=== PATIENT | female | born 1995 | race Caucasian/White ===

== ENCOUNTER 2022-11-14 22:41 | Emergency (ER) | payer OTHER ==
[~2022-11-14] VITALS: Ht 162.6 cm; Wt 68.0 kg
--- NOTE | 2022-11-14 22:44 | NUR ---
TORREY ALS TO BED #5
[2022-11-14 22:45] VITALS: BP 130/80
--- NOTE | 2022-11-14 22:54 | NUR ---
TORREY FROM HOME AFTER PTS MOTHER CALLED 911 STATING THAT HER DAUGHTER HAD OVERDOSED ON SEROQUEL. MOM REPORTED A POSSIBLE 15, 25 MG WERE INGESTED. PT IS NON VERBAL UPON ARRIVAL, RESPONDS TO TACTILE STIMULI. 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
[2022-11-14] MEDS ORDERED: NACL 0.9% 1,000 ML IV ONE (22:55)
--- NOTE | 2022-11-14 23:00 | NUR ---
27 Y/O F presents with an overdose of seroquel. Mom called ER asking about status of daughter and stated daughter took the pills, because he boyfriend called her ugly and broke up with her. The mother also stated her dad 2 years ago and the pt has been taking it rough along with history of attempts of self harm. Mom did state pt has a therapist through [facility] and sees Dr. Fenton. Pt presents sluggish and sleeping with minimal responses. PMH: depression, anxiety, bipolar
[2022-11-14 23:15] LABS: BASOPHILS % (AUTO) 0.7 % (0.0-2.0); EOSINOPHILS % (AUTO) 0.1 % (0.0-4.0); HEMATOCRIT 35.6 % (36-48); LYMPHOCYTES # (AUTO) 1.7 K/uL (2.5-16.5); LYMPHOCYTES % (AUTO) 34.8 % (20.5-51.1); MEAN CORPUSCULAR HEMOGLOBIN 33 pg (27-31); MEAN CORPUSCULAR HGB CONC 34 g/dL (33-37); MEAN CORPUSCULAR VOLUME 96.9 fL (80-94); MONOCYTES # (AUTO) 0.3 K/uL (0.8-1.0); NEUTROPHILS # (AUTO) 2.8 K/uL (1.8-7.7); NEUTROPHILS % (AUTO) 57.4 % (42.2-75.2); PLATELET COUNT (AUTO) 326 K/uL (140-450); RED BLOOD CELL COUNT(AUTO) 3.67 MIL/uL (4.20-5.40); RED CELL DISTRIBUTION WIDTH 13.5 % (11.6-13.7); WHITE BLOOD COUNT (AUTO) 4.9 K/uL (4.8-10.8)
[2022-11-14 23:18] LABS: APPEARANCE,URINE CLEAR (CLEAR); BILIRUBIN,URINE NEGATIVE (NEGATIVE); BLOOD, URINE TRACE-I (NEGATIVE); COLOR,URINE YELLOW (YELLOW); LEUKOCYTE ESTERASE ,URINE NEGATIVE (NEGATIVE); NITRITE, URINE NEGATIVE (NEGATIVE); PH,URINE 6.5 (5.0-9.0); UGLUCOSE NEGATIVE (NEGATIVE)
[2022-11-14 23:27] LABS: BARBITURATE, URINE NEGATIVE ng/ml (NEG <=200); BENZODIAZEPINE, URINE NEGATIVE ng/mL (NEG <=200); CANNABINOID, URINE NEGATIVE ng/mL (NEG <=50); COCAINE, URINE NEGATIVE ng/mL (NEG <=300); OPIATE, URINE NEGATIVE ng/mL (NEG <=2000); PHENCYCLIDINE SCREEN,URINE NEGATIVE ng/mL (NEG <=25)
[2022-11-14 23:29] LABS: WBC,URINE 0-5 /HPF (0-5)
[2022-11-14 23:37] LABS: ALBUMIN 3.9 g/dL (3.4-5.0); ASPARTATE AMINOTRANSFERASE 41 U/L (15-37); CARBON DIOXIDE 24.7 mmol/L (21-32); CHLORIDE 108 mmol/L (98-107); CREATININE 0.6 mg/dL (0.6-1.3); GFR ARICAN-AMERICAN 154 mL/min (>90); GLUCOSE 74 mg/dL (74-106); POTASSIUM 3.7 mmol/L (3.5-5.1); SODIUM SERUM 144 mmol/L (136-145); TOTAL BILIRUBIN 0.2 mg/dL (0.0-1.0); UREA NITROGEN, BLOOD 9 mg/dL (7-18)
[2022-11-14 23:40] LABS: SALICYLATE < 2.8 mg/dL (2.8-20.0)
--- NOTE | 2022-11-14 23:58 | NUR ---
Urine and covid pcr with rapid covid collected
[2022-11-15 00:04] LABS: ACETAMINOPHEN < 0.5 ug/ml (10-30)
--- NOTE | 2022-11-15 00:32 | NUR ---
CONTACTED SAMINA COLON PT IS NOT ON A 3350 HOLD
--- NOTE | 2022-11-15 00:35 | NUR ---
PT MOM CONTACTED ER IN REFERNECE TO DAUGHTER. MOM STATED DAUGHTER TOOK THE PILLS, BECAUSE DAUGHTER IS ON AND OFF WITH BOYFRIEND AND THE BOYFRIEND CALLED HER UGLY. DAD PASSED 2 YEARS AGO AND DAUGHTER HAS BEEN TAKING IT HARD. MOM ALSO STATED PT HAS A HISTORY OF ATTEMPT TO SELF HARM, DEPRESSION, ANXIETY, AND BIPOLAR.
--- NOTE | 2022-11-15 00:46 | NUR ---
POSION CONTROL CONTACTED. ADVISED TO MONITOR PT ON PATIENT ADMITTING REPRESENTATIVE X6HRS . TO CONTACT POSION CONTROL AFTER 6HRS
--- NOTE | 2022-11-15 01:36 | NUR ---
SZ PADS PLACED ON BEDSIDE RAILS X2
--- NOTE | 2022-11-15 02:56 | NUR ---
pt not requiring O2 at this time. O2 at 100% RA
--- NOTE | 2022-11-15 03:25 | NUR ---
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 RESP EVEN AND UNLABORED . HOB ELEVATED. BED AT LOWEST LEVEL SIDE RAILS UP X2
--- NOTE | 2022-11-15 03:30 | NUR ---
PT WILL BE TELEPYSCH IN AM.
--- NOTE | 2022-11-15 05:09 | NUR ---
PT AMBULATED TO RR UNASSISTED
--- NOTE | 2022-11-15 05:57 | NUR ---
DR. REEDER ON TELEPSYCH WITH PT AT THIS TIME
--- NOTE | 2022-11-15 06:09 | NUR ---
Dr. Null spoke with ER MD Momin pt placed on . Will contact PD.
--- NOTE | 2022-11-15 07:21 | NUR ---
[facility] HERE FOR 5150 HOLD ON PT
--- NOTE | 2022-11-15 07:25 | NUR ---
Report recieved from [facility] for transfer of care.
--- NOTE | 2022-11-15 09:45 | NUR ---
Patient is resting on bed, breathing even and unlabored. No signs of distress.
--- NOTE | 2022-11-15 10:38 | NUR ---
Packet faxed to: [facility]/Lilian Presley
--- NOTE | 2022-11-15 11:56 | NUR ---
Patient was offered lunch tray. Patient is sitting up eating lunch.
--- NOTE | 2022-11-15 12:20 | NUR ---
Patient requesting mom to be contacted to inform her job of her not showing up.
--- NOTE | 2022-11-15 12:23 | NUR ---
Patient ambulated to restroom with steady gait.
--- NOTE | 2022-11-15 13:55 | NUR ---
Report given to Nolberto at [facility].
--- NOTE | 2022-11-15 14:08 | NUR ---
IV removed, catheter intact and site benign. Applied folded 4x4 gauze and tape to stop bleeding.
[2022-11-15 14:12] VITALS: BP 94/64
--- NOTE | 2022-11-15 14:12 | NUR ---
[facility] AT BEDSIDE FOR TRANSPORT
--- NOTE | 2022-11-15 14:12 | NUR ---
Patient to be transferred to [facility]. Is being transferred due to Higher Level of Care. Receiving facility has accepting physician and available space. ER physician has signed transfer form. Patient or responsible democrat has agreed to transfer and signed form. Patient belongings inventoried and will be sent with patient. Copy of nursing notes, lab reports, EKG, Physicians Orders and X-rays to be sent with patient. Report called to Nolberto at receiving facility. [facility] ambulance service has been called for transfer. ETA is now.
== END 2022-11-15 14:12 ==
LOC: MED 22:41
DX: R45.851 Suicidal ideations (principal); Z20.822 Contact with and (suspected) exposure to COVID-19; F10.129 Alcohol abuse with intoxication, unspecified; T43.591A Poisoning by other antipsychotics and neuroleptics, accidental (unintentional), initial encounter; Y90.9 Presence of alcohol in blood, level not specified; Y92.89 Other specified places as the place of occurrence of the external cause
CPT/HCPCS: 36415; 80053; 80305; 81001; 81025; 85025; 87426; 87635; 93005; 96360; 99285; C9803; G0480; G0482; J7030